=== PATIENT | female | born 1970 | race Caucasian/White ===

== ENCOUNTER → 2018-05-01 | Outpatient (CLI) | payer OTHER ==
[~2018-05-01] MED LIST: ASCO500 PO; BUPR100 PO; CALCAVITD PO; CHOLESTEROL MED; CITA20 PO; Hair, Skin & N1 EACH PO; METF500 PO
[2018-05-01 14:27] LABS: Free Thyroxine 1.12 ng/dL (0.70-1.60)
[2018-05-01 14:37] LABS: Thyroid Stimulating Hormone 0.739 uIU/mL (0.360-4.800)
== END | disposition home or self-care (01) ==
LOC: LAB 13:30 → LAB SHORT 13:30
PROVIDERS: Hospitalist
DX: R00.0 Tachycardia, unspecified (principal)
CPT/HCPCS: 84439; 84443

== ENCOUNTER 2023-12-02 23:07 | Emergency (ER) | payer OTHER ==
[~2023-12-02] VITALS: Ht 180.3 cm; Wt 113.4 kg
[~2023-12-02 23:07] MED LIST changes: +BUSP5; +Cyclobenzaprine5 MG; +DESVENLAFAXINE50 MG; +HYDCHL25; +KAPSPARGO SPRIN25 MG; +LOSA25; +Lovastatin10 MG; +VYVANSE10 MG
[2023-12-02 23:20] VITALS: BP 158/74
[2023-12-03] MEDS ORDERED: Lisinopril2.5 MG (01:14)
[2023-12-03] MEDS ORDERED: RX Prepack 6 Tabs Oxycodone 5mg UD ONE (01:25)
[2023-12-03] MEDS ORDERED: Cyclobenzaprine HCl 10 MG Tab PO ONE (01:25)
[2023-12-03] MEDS ORDERED: NAPR500 PO (01:27)
[2023-12-03] MEDS ORDERED: CYCL10 PO (01:27)
== END 2023-12-03 01:48 | disposition home or self-care (01) ==
LOC: ER 23:07
DX: S76.912A Strain of unspecified muscles, fascia and tendons at thigh level, left thigh, initial encounter (principal); I10 Essential (primary) hypertension; E11.9 Type 2 diabetes mellitus without complications; W01.0XXA Fall on same level from slipping, tripping and stumbling without subsequent striking against object, initial encounter; Z79.899 Other long term (current) drug therapy
CPT/HCPCS: A9270